=== PATIENT | male | born 1985 | race Hispanic/Latino ===

== ENCOUNTER 2022-08-04 18:41 | Observation (INO) | payer SELFPAY ==
[~2022-08-04] VITALS: Ht 160 cm; Wt 67.0 kg
[2022-08-04] VITALS (15 sets, daily range): BP systolic 148–171; BP diastolic 88–107
[2022-08-04] MEDS ORDERED: METFORMIN HCL1000 MG PO (20:18)
[2022-08-04 20:49] LABS: ALBUMIN 4.9 g/dL (3.2-5.0); ALKALINE PHOSPHATASE 117 u/l (38-126); AMYLASE 81 u/l (30-110); BILIRUBIN, TOTAL 1.3 mg/dL (0.02-1.3); BUN 10 mg/dL (7-17); BUN/CREATININE RATIO 19 (12-20 (CALC)); CARBON DIOXIDE 28 mmol/l (22-30); CHLORIDE 76 mmol/l (95-108); CREATININE 0.5 mg/dL (0.5-1.0); GFR FOR AFR.AMER. > 60 ML/MIN (>=60 (CALC)); GFR OTHER RACES > 60 ML/MIN (>=60 (CALC)); LIPASE 175 u/l (23-300); POTASSIUM 3.7 mmol/l (3.5-5.1); SGOT/AST 85 u/l (14-36); TOTAL PROTEIN 7.7 g/dL (6.3-8.2)
[2022-08-04 20:54] LABS: ANION GAP 16 (6-22 (CALC)); SODIUM 116 mmol/l (137-146)
[2022-08-04 20:58] LABS: BASO% 0.8 % (0-3); EOS% 1.3 % (0-8); HEMATOCRIT 36.4 % (37.0-47.0); HEMOGLOBIN 13.9 g/dl (12.0-16.0); IMMATURE GRANULOCYTES 0.2 % (0.0-5.0); LYMPH% 19.9 % (15-41); MEAN CELL VOLUME 88.8 fL CALC (80.0-100.0); MEAN CORPUSCULAR HGB 33.9 pG CALC (26.0-32.0); MEAN CORPUSCULAR HGB CONC 38.2 g/dL CAL (32.0-36.0); MONO% 7.2 % (2-13); NEUT# 4.33 thou/uL (2.00-7.15); NEUT% 70.6 % (42-76); RED BLOOD COUNT 4.1 mill/uL (4.20-5.60); RED CELL DISTRI WIDTH 10.4 % (11.5-15.5)
[2022-08-04 22:59] LABS: URINE BILIRUBIN - DIPSTICK NEGATIVE (NEGATIVE); URINE BLOOD DIPSTICK NEGATIVE (NEGATIVE); URINE COLOR YELLOW; URINE GLUCOSE - DIPSTICK 100 mg/dL (NEGATIVE); URINE KETONE NEGATIVE (NEGATIVE); URINE LEUK ESTERASE NEGATIVE (NEGATIVE); URINE PH 6.5 (4.5-8.0); URINE PROTEIN - DIPSTICK NEGATIVE (NEG-TRACE); URINE SPECIFIC GRAVITY <=1.005; URINE UROBILINOGEN - DIPSTICK 0.2 E.U./dL (0.2)
[2022-08-04 23:07] LABS: URINE NITRITE - DIPSTICK NEGATIVE (Negative)
[2022-08-05] VITALS (8 sets, daily range): BP systolic 128–139; BP diastolic 64–84
[2022-08-05 09:40] LABS: BASO% 0.9 % (0-3); EOS% 0.9 % (0-8); HEMATOCRIT 37.5 % (39.0-50.0); HEMOGLOBIN 13.8 g/dl (14.0-18.0); IMMATURE GRANULOCYTES 0.3 % (0.0-5.0); LYMPH% 16.8 % (15-41); MEAN CELL VOLUME 91.5 fL CALC (80.0-100.0); MEAN CORPUSCULAR HGB 33.7 pG CALC (26.0-32.0); MEAN CORPUSCULAR HGB CONC 36.8 g/dL CAL (32.0-36.0); MONO% 8.1 % (2-13); NEUT# 2.52 thou/uL (1.82-7.42); RED BLOOD COUNT 4.1 mill/uL (4.70-6.10); RED CELL DISTRI WIDTH 10.6 % (11.5-15.5)
[2022-08-05 09:58] LABS: BUN 7 mg/dL (9-20); BUN/CREATININE RATIO 11 (12-20 (CALC)); CARBON DIOXIDE 29 mmol/l (22-30); CREATININE 0.6 mg/dL (0.7-1.3); GFR FOR AFR.AMER. > 60 ML/MIN (>=60 (CALC)); GFR OTHER RACES > 60 ML/MIN (>=60 (CALC)); POTASSIUM 3.9 mmol/l (3.5-5.1)
[2022-08-05 10:06] LABS: ANION GAP 12 (6-22 (CALC)); CHLORIDE 94 mmol/l (95-108); SODIUM 131 mmol/l (137-146)
[2022-08-05 13:19] LABS: ANION GAP 10 (6-22 (CALC)); BUN 8 mg/dL (9-20); BUN/CREATININE RATIO 11 (12-20 (CALC)); CARBON DIOXIDE 29 mmol/l (22-30); CHLORIDE 94 mmol/l (95-108); CREATININE 0.7 mg/dL (0.7-1.3); GFR FOR AFR.AMER. > 60 ML/MIN (>=60 (CALC)); GFR OTHER RACES > 60 ML/MIN (>=60 (CALC)); POTASSIUM 3.9 mmol/l (3.5-5.1); SODIUM 130 mmol/l (137-146)
[2022-08-05 18:37] LABS: ANION GAP 10 (6-22 (CALC)); BUN 6 mg/dL (9-20); BUN/CREATININE RATIO 9 (12-20 (CALC)); CARBON DIOXIDE 29 mmol/l (22-30); CHLORIDE 98 mmol/l (95-108); CREATININE 0.6 mg/dL (0.7-1.3); GFR FOR AFR.AMER. > 60 ML/MIN (>=60 (CALC)); GFR OTHER RACES > 60 ML/MIN (>=60 (CALC)); POTASSIUM 4.4 mmol/l (3.5-5.1); SODIUM 133 mmol/l (137-146)
[2022-08-06 04:00] VITALS: BP 122/76
[2022-08-06 05:24] VITALS: BP 122/76
[2022-08-06 05:43] LABS: ANION GAP 10 (6-22 (CALC)); BASO% 0.7 % (0-3); BUN 7 mg/dL (9-20); BUN/CREATININE RATIO 13 (12-20 (CALC)); CARBON DIOXIDE 27 mmol/l (22-30); CHLORIDE 103 mmol/l (95-108); CREATININE 0.5 mg/dL (0.7-1.3); EOS% 2.2 % (0-8); GFR FOR AFR.AMER. > 60 ML/MIN (>=60 (CALC)); GFR OTHER RACES > 60 ML/MIN (>=60 (CALC)); HEMOGLOBIN 12.6 g/dl (14.0-18.0); IMMATURE GRANULOCYTES 0.2 % (0.0-5.0); LYMPH% 33.6 % (15-41); MAGNESIUM 1.9 mg/dL (1.6-2.3); MEAN CORPUSCULAR HGB 33.6 pG CALC (26.0-32.0); MONO% 8.5 % (2-13); NEUT# 2.2 thou/uL (1.82-7.42); NEUT% 54.8 % (42-76); POTASSIUM 4.3 mmol/l (3.5-5.1); RED BLOOD COUNT 3.75 mill/uL (4.70-6.10); RED CELL DISTRI WIDTH 10.9 % (11.5-15.5); SODIUM 135 mmol/l (137-146)
[2022-08-06 06:38] VITALS: BP 133/76
== END 2022-08-06 11:15 | disposition home or self-care (01) | DRG 641 ==
LOC: ED 18:41 → ED-I 22:14 → ED 22:23 → MS2 22:24 → EDSEX 22:24 → MS2 22:24
PROVIDERS: Emergency Medicine; ADMIT Internal Medicine; ATTEND Internal Medicine
DX: E87.1 Hypo-osmolality and hyponatremia (principal); F10.139 Alcohol abuse with withdrawal, unspecified; E86.1 Hypovolemia; E11.9 Type 2 diabetes mellitus without complications; Y90.0 Blood alcohol level of less than 20 mg/100 ml; Z79.84 Long term (current) use of oral hypoglycemic drugs; Z20.822 Contact with and (suspected) exposure to COVID-19
CPT/HCPCS: G0378; J2060

== ENCOUNTER 2022-09-06 17:41 | Observation (INO) | payer SELFPAY ==
[2022-09-06] VITALS (11 sets, daily range): BP systolic 160–176; BP diastolic 101–111
[~2022-09-06] VITALS: Ht 160 cm; Wt 64.0 kg
[~2022-09-06 17:41] MED LIST: METFORMIN HCL1000 MG PO
[2022-09-06 21:38] LABS: BASO% 0.3 % (0-3); EOS% 1.4 % (0-8); IMMATURE GRANULOCYTES 0.3 % (0.0-5.0); LYMPH% 18.1 % (15-41); MEAN CORPUSCULAR HGB 33.9 pG CALC (26.0-32.0); MEAN CORPUSCULAR HGB CONC 37.6 g/dL CAL (32.0-36.0); MONO% 8.7 % (2-13); NEUT# 4.61 thou/uL (1.82-7.42); NEUT% 71.2 % (42-76); RED BLOOD COUNT 4.69 mill/uL (4.70-6.10); RED CELL DISTRI WIDTH 11.2 % (11.5-15.5)
[2022-09-06 21:42] LABS: HEMATOCRIT 42.3 % (39.0-50.0); HEMOGLOBIN 15.9 g/dl (14.0-18.0); MEAN CELL VOLUME 90.2 fL CALC (80.0-100.0)
[2022-09-06 21:48] LABS: ALBUMIN 4.8 g/dL (3.2-5.0); ALKALINE PHOSPHATASE 80 u/l (38-126); BILIRUBIN, TOTAL 1.2 mg/dL (0.2-1.3); BUN 8 mg/dL (9-20); BUN/CREATININE RATIO 13 (12-20 (CALC)); CARBON DIOXIDE 29 mmol/l (22-30); CREATININE 0.6 mg/dL (0.7-1.3); GFR FOR AFR.AMER. > 60 ML/MIN (>=60 (CALC)); GFR OTHER RACES > 60 ML/MIN (>=60 (CALC)); POTASSIUM 4.5 mmol/l (3.5-5.1); SGOT/AST 69 u/l (17-59)
[2022-09-06 21:51] LABS: ANION GAP 15 (6-22 (CALC)); CHLORIDE 77 mmol/l (95-108); SODIUM 116 mmol/l (137-146)
[2022-09-06 23:24] LABS: URINE BILIRUBIN - DIPSTICK NEGATIVE (NEGATIVE); URINE BLOOD DIPSTICK NEGATIVE (NEGATIVE); URINE COLOR YELLOW; URINE GLUCOSE - DIPSTICK NEGATIVE (NEGATIVE); URINE KETONE NEGATIVE (NEGATIVE); URINE LEUK ESTERASE NEGATIVE (NEGATIVE); URINE PROTEIN - DIPSTICK NEGATIVE (NEG-TRACE); URINE SPECIFIC GRAVITY <=1.005; URINE UROBILINOGEN - DIPSTICK 0.2 E.U./dL (0.2)
[2022-09-06 23:27] LABS: URINE NITRITE - DIPSTICK NEGATIVE (Negative)
[2022-09-07] VITALS (52 sets, daily range): BP systolic 121–168; BP diastolic 81–110
[2022-09-07 06:40] LABS: BUN 7 mg/dL (9-20); BUN/CREATININE RATIO 10 (12-20 (CALC)); CARBON DIOXIDE 31 mmol/l (22-30); CREATININE 0.7 mg/dL (0.7-1.3); GFR FOR AFR.AMER. > 60 ML/MIN (>=60 (CALC)); GFR OTHER RACES > 60 ML/MIN (>=60 (CALC)); POTASSIUM 4.4 mmol/l (3.5-5.1)
[2022-09-07 06:41] LABS: ANION GAP 13 (6-22 (CALC)); CHLORIDE 87 mmol/l (95-108); SODIUM 127 mmol/l (137-146)
[2022-09-08 04:32] VITALS: BP 166/105
[2022-09-08 05:17] VITALS: BP 180/106
[2022-09-08 05:57] LABS: HEMATOCRIT 41.7 % (39.0-50.0); IMMATURE GRANULOCYTES 0.2 % (0.0-5.0); LYMPH% 25.5 % (15-41); MEAN CELL VOLUME 94.6 fL CALC (80.0-100.0); NEUT# 3.05 thou/uL (1.82-7.42); NEUT% 62.3 % (42-76); RED BLOOD COUNT 4.41 mill/uL (4.70-6.10); RED CELL DISTRI WIDTH 11.4 % (11.5-15.5)
[2022-09-08 06:24] LABS: ALBUMIN 4.4 g/dL (3.2-5.0); ALKALINE PHOSPHATASE 71 u/l (38-126); ANION GAP 13 (6-22 (CALC)); BUN 9 mg/dL (9-20); BUN/CREATININE RATIO 16 (12-20 (CALC)); CARBON DIOXIDE 25 mmol/l (22-30); CREATININE 0.6 mg/dL (0.7-1.3); GFR FOR AFR.AMER. > 60 ML/MIN (>=60 (CALC)); GFR OTHER RACES > 60 ML/MIN (>=60 (CALC)); POTASSIUM 4.5 mmol/l (3.5-5.1); SGOT/AST 80 u/l (17-59); SODIUM 132 mmol/l (137-146); TOTAL PROTEIN 7.2 g/dL (6.3-8.2)
[2022-09-08 06:30] LABS: CHLORIDE 99 mmol/l (95-108)
[2022-09-08 06:38] VITALS: BP 137/95
[2022-09-08 11:19] VITALS: BP 151/94
[2022-09-08 14:50] VITALS: BP 167/103
[2022-09-08] MEDS ORDERED: VITAMIN B-1100 M1 PO (14:58)
[2022-09-08] MEDS ORDERED: LOSARTAN POTASS50 MG PO (14:58)
[2022-09-08] MEDS ORDERED: LIBRIUM25 MG PO (14:59)
[2022-09-08] MEDS ORDERED: GABAPENTIN100 MG PO (14:59)
[2022-09-08 15:36] VITALS: BP 167/103
== END 2022-09-08 16:04 | disposition home or self-care (01) | DRG 641 ==
LOC: ED 17:41 → ED-I 23:00 → ICU 23:56 → ED 23:56 → MS2 09-07 16:42
PROVIDERS: Emergency Medicine; Nurse Practitioner Family; ADMIT Internal Medicine; ATTEND Internal Medicine
DX: E87.1 Hypo-osmolality and hyponatremia (principal); E87.8 Other disorders of electrolyte and fluid balance, not elsewhere classified; E11.42 Type 2 diabetes mellitus with diabetic polyneuropathy; I10 Essential (primary) hypertension; F10.10 Alcohol abuse, uncomplicated; R74.8 Abnormal levels of other serum enzymes; Y90.0 Blood alcohol level of less than 20 mg/100 ml; Z79.84 Long term (current) use of oral hypoglycemic drugs
CPT/HCPCS: G0378; J1650; J3420